=== PATIENT | male | born 1970 | race African-American/Black ===

== ENCOUNTER 2020-11-19 20:39 | Emergency (ER) | payer MEDICAID ==
[~2020-11-19] VITALS: Ht 170.2 cm; Wt 136.1 kg
[2020-11-19] MEDS ORDERED: TENORMIN25 MG PO (21:04)
[2020-11-20] MEDS ORDERED: HYDROCODON-ACE1 EA10 PO (04:52)
[2020-11-20] MEDS ORDERED: ATENOLOL25 MG PO (04:52)
[2020-11-20] MEDS ORDERED: PENICILLIN V P500 MG PO (04:56)
== END 2020-11-20 05:36 | disposition home or self-care (01) ==
LOC: ED 20:39
DX: S01.511A Laceration without foreign body of lip, initial encounter (principal); F07.81 Postconcussional syndrome; I10 Essential (primary) hypertension; V57.5XXA Driver of pick-up truck or van injured in collision with fixed or stationary object in traffic accident, initial encounter; F17.200 Nicotine dependence, unspecified, uncomplicated; Z79.899 Other long term (current) drug therapy
CPT/HCPCS: 12011; 70450; 70486; 80053; 82150; 82550; 83690; 85025; 85610; 85730; 86850; 86900; 86901; 90471; 90715; 96368; 99284-25; C9803; J0696; J1170; J2405; J7060; U0003